=== PATIENT | female | born 1945 | race Caucasian/White ===

== ENCOUNTER 2020-07-26 09:37 | Outpatient (CLI) | payer MEDICARE | END 2020-07-26 09:38 | disposition home or self-care (01) | LOC: CSHMAMMO 09:37 | PROVIDERS: ATTEND Family Medicine | DX: Z12.31 Encounter for screening mammogram for malignant neoplasm of breast (principal) | CPT/HCPCS: 77063; 77067 ==

== ENCOUNTER 2021-12-30 08:47 | Outpatient (CLI) | payer MEDICARE | END 2021-12-30 08:48 | disposition home or self-care (01) | LOC: CSHULT 08:47 | PROVIDERS: ATTEND Family Medicine | DX: E04.1 Nontoxic single thyroid nodule (principal) | CPT/HCPCS: 76536 ==

== ENCOUNTER 2024-01-04 07:40 | Outpatient (CLI) | payer MEDICARE ==
[2024-01-04] MEDS ORDERED: Iopamidol 300 61% 100 ML VIAL FS ONE (11:28)
== END 2024-01-04 07:41 | disposition home or self-care (01) ==
LOC: CSHCT 07:40
PROVIDERS: ATTEND Family Medicine
DX: R10.32 Left lower quadrant pain (principal); R19.5 Other fecal abnormalities; R59.1 Generalized enlarged lymph nodes; K41.20 Bilateral femoral hernia, without obstruction or gangrene, not specified as recurrent
CPT/HCPCS: 74177; 82565

== ENCOUNTER 2024-02-19 10:53 | Outpatient (CLI) | payer MEDICARE ==
[2024-02-19 11:51] LABS: #Basophils 0.02 10x3/uL (0.0-0.2); #Eosinophils 0.15 10x3/uL (0.0-0.5); #Monocytes 0.76 10x3/uL (0.0-1.1); #Neutrophils 3.03 10x3/uL (1.5-8.4); %Basophils 0.4 % (0.0-2.0); %Eosinophils 2.7 % (0.0-6.0); %Lymphocytes 27.1 % (18.0-47.0); %Monocytes 13.9 % (0.0-10.0); %Neutrophils 55.5 % (40.0-75.0); Hematocrit 44.2 % (34.9-44.5); Hemoglobin 14.6 g/dL (12.0-15.5); Mean Corpuscular Hemoglobin 32.5 pg (27.0-33.0); Mean Corpuscular Volume 98.4 fL (81.6-98.3); Mean Platelet Volume 8.7 fL (7.4-10.4); Platelet Count 280 10x3/uL (150-450); RBC Distribution Width 12.5 % (11.5-14.5); Red Blood Cell (RBC) Count 4.49 10x6/uL (3.90-5.03); White Blood Cell (WBC) Count 5.5 10x3/uL (3.5-10.5)
[2024-02-19 12:15] LABS: ALT (SGPT) 23 U/L (8-55); AST (SGOT) 29 U/L (5-34); Albumin 3.7 g/dL (3.4-4.8); Alkaline Phosphatase 80 U/L (40-110); Anion Gap 12 mmol/L (10-20); BUN (Urea Nitrogen) 11 mg/dL (9.8-20.1); Bilirubin, Total 0.8 mg/dL (0.2-1.2); Calc. Creatinine Clearance 0 mL/min (70-130); Calcium 9.4 mg/dL (7.8-10.44); Carbon Dioxide 24 mmol/L (23-31); Chloride 108 mmol/L (98-107); Estimated GFR 82; Globulin 2.4 g/dL (2.4-3.5); Glucose 103 mg/dL (83-110); Potassium 4.3 mmol/L (3.5-5.1); Protein, Total 6.1 g/dL (5.8-8.1); Sodium 140 mmol/L (136-145)
== END 2024-02-19 10:54 | disposition home or self-care (01) ==
LOC: CSHLAB 10:53
PROVIDERS: ATTEND Surgery
DX: Z01.812 Encounter for preprocedural laboratory examination (principal); K41.20 Bilateral femoral hernia, without obstruction or gangrene, not specified as recurrent
CPT/HCPCS: 80053; 85025

== ENCOUNTER 2024-02-22 07:44 | Day surgery (SDC) | payer MEDICARE ==
[2024-02-19 11:26] VITALS: BMI 26.4
[2024-02-22] MEDS ORDERED: Bupivacaine/Epinephrine 0.25% 30 ML VIAL ONE (08:35)
[2024-02-22] MEDS ORDERED: CEFAZOLIN 2 GM VIAL ONE (09:15)
[2024-02-22] MEDS ORDERED: fentaNYL 50 mcg/mL 1 mL Vial ONE ×3 (09:20→10:57)
[2024-02-22] MEDS ORDERED: Lidocaine 1% PF 5 ML VIAL ONE (09:20)
[2024-02-22] MEDS ORDERED: PROPOFOL 20 ML ONE (09:20)
[2024-02-22] MEDS ORDERED: Sevoflurane 250 ML INH ANEST BOTTLE ONE (09:24)
[2024-02-22] MEDS ORDERED: ePHEDrine Sulfate 50 MG/10 ML VIAL ONE (09:51)
[2024-02-22] MEDS ORDERED: Ondansetron PF 4 MG/2 ML Vial ONE ×2 (10:19→10:42)
[2024-02-22] MEDS ORDERED: HYDROcodone/Acetaminophen 5/325 mg Tablet ONE (11:39)
== END 2024-02-22 12:25 | disposition home or self-care (01) ==
LOC: CSHSDC 07:44
PROVIDERS: ATTEND Surgery
PROC: 0YU Anatomical Regions, Lower Extremities, Supplement (ICD-10-PCS; principal; 2024-02-22)
DX: K41.20 Bilateral femoral hernia, without obstruction or gangrene, not specified as recurrent (principal); E78.00 Pure hypercholesterolemia, unspecified; J43.9 Emphysema, unspecified; I48.19 Other persistent atrial fibrillation; E78.5 Hyperlipidemia, unspecified; I10 Essential (primary) hypertension; Z79.51 Long term (current) use of inhaled steroids; Z98.890 Other specified postprocedural states; Z79.899 Other long term (current) drug therapy; Z88.0 Allergy status to penicillin
CPT/HCPCS: J2405; J2704; J3010

== ENCOUNTER 2024-02-22 20:09 | Emergency (ER) | payer MEDICARE ==
[2024-02-22] MEDS ORDERED: Ondansetron ODT 4 MG TAB ONE (21:28)
== END 2024-02-22 22:36 | disposition home or self-care (01) ==
LOC: CSHERS 20:09
DX: R11.2 Nausea with vomiting, unspecified (principal); I48.91 Unspecified atrial fibrillation; J44.9 Chronic obstructive pulmonary disease, unspecified
CPT/HCPCS: 74022; C1781; J2405; J2704; J3010; Q0162; 99284; A6258

== ENCOUNTER 2024-04-30 13:53 | Emergency (ER) | payer MEDICARE ==
[2024-04-30 15:40] LABS: #Basophils 0.03 10x3/uL (0.0-0.2); #Eosinophils 0.11 10x3/uL (0.0-0.5); #Monocytes 1.02 10x3/uL (0.0-1.1); #Neutrophils 5.58 10x3/uL (1.5-8.4); %Basophils 0.3 % (0.0-2.0); %Eosinophils 1.3 % (0.0-6.0); %Lymphocytes 22.3 % (18.0-47.0); %Monocytes 11.7 % (0.0-10.0); %Neutrophils 64.1 % (40.0-75.0); Hematocrit 44.1 % (34.9-44.5); Hemoglobin 14.5 g/dL (12.0-15.5); Mean Corpuscular HGB CONC 32.9 g/dL (32.0-36.0); Mean Corpuscular Hemoglobin 32.1 pg (27.0-33.0); Mean Corpuscular Volume 97.6 fL (81.6-98.3); Mean Platelet Volume 8.8 fL (7.4-10.4); Platelet Count 287 10x3/uL (150-450); RBC Distribution Width 12.6 % (11.5-14.5); Red Blood Cell (RBC) Count 4.52 10x6/uL (3.90-5.03); White Blood Cell (WBC) Count 8.71 10x3/uL (3.5-10.5)
[2024-04-30 15:55] LABS: ALT (SGPT) 16 U/L (8-55); AST (SGOT) 31 U/L (5-34); Albumin 3.7 g/dL (3.4-4.8); Alkaline Phosphatase 73 U/L (40-110); Anion Gap 12 mmol/L (10-20); BUN (Urea Nitrogen) 9 mg/dL (9.8-20.1); Bilirubin, Total 0.9 mg/dL (0.2-1.2); Calc. Creatinine Clearance 0 mL/min (70-130); Calcium 9.2 mg/dL (7.8-10.44); Carbon Dioxide 24 mmol/L (23-31); Chloride 110 mmol/L (98-107); Estimated GFR 81; Globulin 2.4 g/dL (2.4-3.5); Glucose 105 mg/dL (83-110); Potassium 4.2 mmol/L (3.5-5.1); Protein, Total 6.1 g/dL (5.8-8.1); Sodium 142 mmol/L (136-145)
[2024-04-30] MEDS ORDERED: Aspirin Chewable 81 MG TAB ONE (16:46)
[2024-04-30] MEDS ORDERED: Enoxaparin 60 MG (0.6 mL) SYRINGE ONE (16:46)
[2024-04-30 16:49] LABS: PTT 31.9 sec (22.0-33.0); Prothrombin Time 10.9 sec (9.5-12.1)
[2024-04-30 17:10] LABS: Troponin I 1.599 ng/mL (< 0.028)
== END 2024-04-30 18:50 | disposition short-term general hospital (02) ==
LOC: CSHERS 13:53
DX: I21.4 Non-ST elevation (NSTEMI) myocardial infarction (principal); J44.9 Chronic obstructive pulmonary disease, unspecified
CPT/HCPCS: 71045; 80053; 84484 ×2; 85025; 85610; 85730; 93005; J1650

== ENCOUNTER 2024-06-04 16:29 | Emergency (ER) | payer MEDICARE ==
[~2024-06-04 16:29] MED LIST: Iopamidol 300 61% 100 ML VIAL FS ONE
[2024-06-04] MEDS ORDERED: Pantoprazole 40 MG VIAL ONE (16:51)
[2024-06-04 17:04] LABS: Hematocrit 41.1 % (34.9-44.5); Hemoglobin 13.7 g/dL (12.0-15.5); Mean Corpuscular HGB CONC 33.3 g/dL (32.0-36.0); Mean Corpuscular Hemoglobin 31.9 pg (27.0-33.0); Mean Corpuscular Volume 95.6 fL (81.6-98.3); Mean Platelet Volume 8.9 fL (7.4-10.4); Platelet Count 262 10x3/uL (150-450); RBC Distribution Width 12.6 % (11.5-14.5); White Blood Cell (WBC) Count 3.81 10x3/uL (3.5-10.5)
[2024-06-04 17:13] LABS: PTT 28.8 sec (22.0-33.0)
[2024-06-04 17:19] LABS: ALT (SGPT) 39 U/L (Less than 34); AST (SGOT) 68 U/L (11-34); Albumin 3.7 g/dL (3.1-4.5); Alkaline Phosphatase 69 U/L (40-110); Anion Gap 14 mmol/L (10-20); BUN (Urea Nitrogen) 18 mg/dL (9.8-20.1); Bilirubin, Total 0.3 mg/dL (0.3-1.2); Calc. Creatinine Clearance 0 mL/min (70-130); Calcium 9.6 mg/dL (7.8-10.44); Carbon Dioxide 24 mmol/L (23-31); Chloride 105 mmol/L (98-107); Estimated GFR 63; Glucose 127 mg/dL (83-110); Potassium 3.4 mmol/L (3.5-5.1); Protein, Total 6.7 g/dL (5.8-8.1); Sodium 140 mmol/L (136-145)
[2024-06-04 17:56] LABS: Band 2 % (5-11); Eosinophils 1 % (0-10); Lymphocytes 37 % (21-51); MDiff Complete? YES; Monocytes 11 % (0-10); Neutrophil 47 % (42-75); Platelet Adequacy Comment Appears Adequate; RBC Morphology Within Normal Limits; Reactive Lymphocytes 2 % (0-10)
== END 2024-06-04 18:59 | disposition home or self-care (01) ==
LOC: CSHERS 16:29
DX: K52.9 Noninfective gastroenteritis and colitis, unspecified (principal); I48.91 Unspecified atrial fibrillation
CPT/HCPCS: 74177; 80053; 83690; 83880; 85025; 85610; 85730; 86850; 86900; 86901; 93005; J2470; 36415; 96374